=== PATIENT | male | born 1950 | race Caucasian/White ===

== ENCOUNTER 2023-08-27 14:42 | Inpatient (IN) | payer MEDICARE ==
[2023-08-27] MEDS ORDERED: Acetaminophen 325 MG TAB PO PRN (16:55)
[2023-08-27] MEDS ORDERED: Bisacodyl 5 MG TAB PO PRN (16:55)
[2023-08-27] MEDS ORDERED: Ondansetron PF 4 MG/2 ML Vial IVP PRN (16:55)
[2023-08-27] MEDS ORDERED: HYDROcodone/Acetaminophen 5/325 mg Tablet PO PRN (16:55)
[2023-08-27 16:59] VITALS: BMI 31.4
[2023-08-27] MEDS: Sodium Chloride 0.9% 1,000 ML IV SCH (17:45)
[2023-08-27 18:01] LABS: ALT (SGPT) 16 U/L (8-55); AST (SGOT) 22 U/L (5-34); Albumin 2.3 g/dL (3.4-4.8); Alkaline Phosphatase 63 U/L (40-110); Bilirubin, Total 0.5 mg/dL (0.2-1.2); Calc. Creatinine Clearance 70 mL/min (70-130); Calcium 11.5 mg/dL (7.8-10.44); Estimated GFR 56; Globulin 3.5 g/dL (2.4-3.5); Glucose 109 mg/dL (83-110); Protein, Total 5.8 g/dL (5.8-8.1)
[2023-08-27 18:11] LABS: Anion Gap 15 mmol/L (10-20); BUN (Urea Nitrogen) 115 mg/dL (8.4-25.7); Carbon Dioxide 34 mmol/L (23-31); Chloride 79 mmol/L (98-107); Potassium 4.5 mmol/L (3.5-5.1); Sodium 123 mmol/L (136-145)
[2023-08-27] MEDS: Ipratropium/Albuterol 3 ML NEB NEB SCH (19:15)
[2023-08-27] MEDS: VANCOMYCIN 2 GRAM/400 ML BAG 2 GM in Premix 1 BAG IVPB SCH (20:42)
[2023-08-27] MEDS: Cefepime 1 GM in Sodium Chloride 0.9% 100 ML IVPB SCH (20:42)
[2023-08-27] MEDS: Hydrocodone-Acetamin 15 ML UDCUP PO PRN (20:42)
[2023-08-27] MEDS: Sodium Chloride 1 GM TAB PO SCH (20:44)
[2023-08-27 23:08] LABS: Sodium, Urine Less than 20 mmol/L (Not Available)
[2023-08-28] MEDS: Melatonin 3 MG TAB PO SCH (01:19)
[2023-08-28 05:07] LABS: #Basophils 0.04 10x3/uL (0.0-0.2); #Eosinphils 0.11 10x3/uL (0.0-0.5); #Monocytes 1.35 10x3/uL (0.0-1.1); #Neutrophils 10.42 10x3/uL (1.5-8.4); %Basophils 0.3 % (0.0-2.0); %Eosinophils 0.9 % (0.0-6.0); %Lymphocytes 3.2 % (18.0-47.0); %Monocytes 10.9 % (0.0-10.0); %Neutrophils 83.8 % (40.0-75.0); Hematocrit 33.9 % (38.8-50.0); Hemoglobin 11.8 g/dL (13.5-17.5); Mean Corpuscular HGB CONC 34.8 g/dL (32.0-36.0); Mean Corpuscular Hemoglobin 30.3 pg (27.0-33.0); Mean Corpuscular Volume 87.1 fl (81.2-95.1); Platelet Count 474 10x3/uL (150-450); RBC Distribution Width 13.5 % (11.5-14.5); Red Blood Cell (RBC) Count 3.89 10x6/uL (4.32-5.72); White Blood Cell (WBC) Count 12.4 10x3/uL (3.5-10.5)
[2023-08-28 05:12] LABS: Anion Gap 14 mmol/L (10-20); BUN (Urea Nitrogen) 93 mg/dL (8.4-25.7); Calc. Creatinine Clearance 82 mL/min (70-130); Calcium 11.3 mg/dL (7.8-10.44); Carbon Dioxide 35 mmol/L (23-31); Chloride 83 mmol/L (98-107); Estimated GFR 67; Glucose 129 mg/dL (83-110); Potassium 4.6 mmol/L (3.5-5.1); Sodium 127 mmol/L (136-145)
[2023-08-28 05:19] LABS: Vancomycin, Random 21.9 ug/mL (See Comment)
[2023-08-28] MEDS: Morphine 2 MG/ML VIAL SLOW IVP SCH (09:31)
[2023-08-28] MEDS: Enoxaparin 40 MG (0.4 mL) SYRINGE SC SCH (09:40)
[2023-08-28 12:10] VITALS: BMI 31.4
[2023-08-28] MEDS: Morphine 2 MG/ML VIAL SLOW IVP PRN (12:37)
[2023-08-28] MEDS: Hydrocodone-Acetamin 15 ML UDCUP PO PRN (17:19)
[2023-08-28] MEDS: Vancomycin 1.5 GRAM/300 ML BAG 1.5 GM in Premix 1 BAG IVPB SCH (17:22)
[2023-08-28] MEDS: Flecainide 50 MG TAB PO SCH (21:42)
[2023-08-28] MEDS: traMADol HCl 50 MG TAB PO PRN (21:42)
[2023-08-28] MEDS: Losartan 50 MG TAB PO SCH (21:43)
[2023-08-28] MEDS: Levothyroxine Sodium 100 MCG TAB PO SCH (21:45)
[2023-08-28] MEDS: cloNIDine 0.1 MG TAB PO SCH (21:46)
[2023-08-28] MEDS: Ipratropium/Albuterol 3 ML NEB NEB SCH (23:25)
[2023-08-28] MEDS: dilTIAZem CD 240 MG CAP PO SCH (23:57)
[2023-08-29 03:41] LABS: #Basophils 0.05 10x3/uL (0.0-0.2); #Eosinphils 0.08 10x3/uL (0.0-0.5); #Monocytes 1.38 10x3/uL (0.0-1.1); #Neutrophils 10.68 10x3/uL (1.5-8.4); %Basophils 0.4 % (0.0-2.0); %Eosinophils 0.6 % (0.0-6.0); %Lymphocytes 3.2 % (18.0-47.0); %Monocytes 10.9 % (0.0-10.0); %Neutrophils 84.1 % (40.0-75.0); Hematocrit 31.4 % (38.8-50.0); Hemoglobin 10.6 g/dL (13.5-17.5); Mean Corpuscular HGB CONC 33.8 g/dL (32.0-36.0); Mean Corpuscular Hemoglobin 29.4 pg (27.0-33.0); Mean Platelet Volume 9.9 fl (7.4-10.4); Platelet Count 473 10x3/uL (150-450); RBC Distribution Width 13.5 % (11.5-14.5); Red Blood Cell (RBC) Count 3.61 10x6/uL (4.32-5.72); White Blood Cell (WBC) Count 12.7 10x3/uL (3.5-10.5)
[2023-08-29 03:50] LABS: Anion Gap 13 mmol/L (10-20); BUN (Urea Nitrogen) 46 mg/dL (8.4-25.7); Calc. Creatinine Clearance 120 mL/min (70-130); Calcium 10.8 mg/dL (7.8-10.44); Carbon Dioxide 32 mmol/L (23-31); Chloride 87 mmol/L (98-107); Estimated GFR 94; Glucose 114 mg/dL (83-110); Sodium 128 mmol/L (136-145)
[2023-08-29] MEDS: Ipratropium/Albuterol 3 ML NEB NEB SCH (05:40)
[2023-08-29] MEDS: metFORMIN 500 MG TAB PO SCH (08:30)
[2023-08-29] MEDS: Oxymetazoline HCl 0.05% ( 15 ML ) NASAL PRN (13:36)
[2023-08-30 03:46] LABS: Vancomycin, Random 21.1 ug/mL (See Comment)
[2023-08-30] MEDS: Ipratropium/Albuterol 3 ML NEB NEB SCH (05:17)
[2023-08-30] MEDS ORDERED: Ipratropium/Albuterol 3 ML NEB NEB SCH (05:45)
[2023-08-30] MEDS ORDERED: Ipratropium/Albuterol 3 ML NEB NEB PRN (05:52)
[2023-08-30 08:32] VITALS: TEMP 97.9
[2023-08-30] MEDS: Furosemide 40 MG (4 mL) VIAL SLOW IVP SCH ×2 (08:34→13:29)
[2023-08-30] MEDS: methylPREDNISolone Sod Succ 40 MG VIAL IVP SCH (08:36)
[2023-08-30 09:07] LABS: Anion Gap 13 mmol/L (10-20); BUN (Urea Nitrogen) 44 mg/dL (8.4-25.7); Calc. Creatinine Clearance 73 mL/min (70-130); Calcium 11.2 mg/dL (7.8-10.44); Carbon Dioxide 32 mmol/L (23-31); Chloride 87 mmol/L (98-107); Estimated GFR 59; Glucose 111 mg/dL (83-110); Potassium 4.2 mmol/L (3.5-5.1); Sodium 128 mmol/L (136-145)
[2023-08-30 09:10] LABS: #Basophils 0.05 10x3/uL (0.0-0.2); #Eosinphils 0.06 10x3/uL (0.0-0.5); #Monocytes 1.45 10x3/uL (0.0-1.1); #Neutrophils 11.88 10x3/uL (1.5-8.4); %Basophils 0.4 % (0.0-2.0); %Eosinophils 0.4 % (0.0-6.0); %Lymphocytes 3.1 % (18.0-47.0); %Monocytes 10.4 % (0.0-10.0); %Neutrophils 85.1 % (40.0-75.0); Hematocrit 31.5 % (38.8-50.0); Hemoglobin 10.8 g/dL (13.5-17.5); Mean Corpuscular HGB CONC 34.3 g/dL (32.0-36.0); Mean Corpuscular Hemoglobin 30.5 pg (27.0-33.0); Platelet Count 473 10x3/uL (150-450); RBC Distribution Width 13.6 % (11.5-14.5); Red Blood Cell (RBC) Count 3.54 10x6/uL (4.32-5.72)
[2023-08-30] MEDS: Lorazepam 2 MG/ML VIAL SLOW IVP SCH (11:57)
[2023-08-30 12:19] LABS: Actual Bicarbonate (HCO3a) 33.5 mEq/L (22-28); Analyzer IN Cardio CS ICU; CO2 Tension 57.2 mmHg (35.0-45.0); Calcium, Ionized (arterial) 1.43 mmol/L (1.12-1.30); Carboxyhemoglobin (COHb) 0.3 gm% (0.0-3.0); Hematocrit-ABG 35 % (42.0-52.0); Hemoglobin (Hb) 11.8 g/dL (14.0-18.0); O2 Tension (PaO2), arterial 71.8 mmHg (> 70.0); Puncture Site LRA; pH, Arterial 7.386 (7.35-7.45)
[2023-08-30] MEDS: Vancomycin 1.5 GRAM/300 ML BAG 1.5 GM in Premix 1 BAG IVPB SCH (12:29)
[2023-08-30 12:31] VITALS: BP 95/59
[2023-08-30] MEDS ORDERED: Lorazepam 2 MG/ML VIAL SLOW IVP PRN (17:00)
== END 2023-08-30 15:26 | disposition short-term general hospital (02) | DRG 180 ==
LOC: CSHTELE 15:44
PROVIDERS: ADMIT Family Medicine; ATTEND Family Medicine
PROC: 4A033R1 Measurement of Arterial Saturation, Peripheral, Percutaneous Approach (ICD-10-PCS; principal; 2023-08-30)
DX: C34.90 Malignant neoplasm of unspecified part of unspecified bronchus or lung (principal); J96.21 Acute and chronic respiratory failure with hypoxia; E22.2 Syndrome of inappropriate secretion of antidiuretic hormone; J91.0 Malignant pleural effusion; C79.9 Secondary malignant neoplasm of unspecified site; I10 Essential (primary) hypertension; Z66 Do not resuscitate; R13.10 Dysphagia, unspecified; E03.9 Hypothyroidism, unspecified; E11.9 Type 2 diabetes mellitus without complications; I48.91 Unspecified atrial fibrillation; K22.89 Other specified disease of esophagus; Z90.89 Acquired absence of other organs; Z98.890 Other specified postprocedural states; Z88.5 Allergy status to narcotic agent; Z88.2 Allergy status to sulfonamides; Z79.890 Hormone replacement therapy; Z79.899 Other long term (current) drug therapy
CPT/HCPCS: 36415; 36600; 71045; 80048; 80202; 82436; 82805; 83880; 83930; 83935; 84133; 84145; 84300; 84443; 85025; 86140; 87081; 94640; 94660; 94760; 94762; J0692; J1650; J1940; J2060; J2272; J2920; J3370; J3490; J7050; J7620